=== PATIENT | male | born 1955 | race Caucasian/White ===

== ENCOUNTER → 2017-04-18 | Outpatient (CLI) | payer BC ==
[~2017-04-18] MED LIST: ALBU90OI6 INH; AMIT50; AMIT50 PO; AMOX500 PO; ASPI325; ASPI81CH PO; ATEN50 PO; AZIT250 PO; Amitriptyline100 MG PO; BENZ100A PO; CHOL10002 PO; CODGUAEL PO; Cyclobenzaprine5 MG PO; EZET10; FENO145 PO; GENT.3OPSA OD; HYDACE5; HYDACE5 PO; HYDPAM50 PO; IBUP600 PO; LEVFLO500; LEVSOD50 PO; LEVSOD75 PO; LORA2 PO; Lasix40 MG PO; MECL25 PO; METF500 PO; METR500; MYRBETRIQ50 MG PO; NAPR550 PO; NEBI10 PO; Norco 10-325 T1 EACH PO; OMEP20ER PO; OXYACE5T PO; PRED20 PO; PROM25 PO; RXCODGUASY PO; TOBR.3OPSO OP; VITAMIN D-32000 UNIT PO; Zofran Odt4 MG SL; [UNRECOGNIZED DRUG - REMARK]
[2017-04-18 10:39] LABS: Very Low Density Lipoprot Chol 58 mg/dL (6-32)
[2017-04-18 10:47] LABS: Alanine Aminotransfer (ALT/SGP 49 U/L (12-78); Albumin, Blood 3.3 g/dL (3.4-5.0); Albumin/Globulin Ratio 0.9 (0.8-1.8); Alk Phos 81 U/L (50-136); Anion Gap 8 mmol/L (6-16); Aspartate Aminotrans (AST/SGOT 32 U/L (12-37); Bilirubin, Total 0.3 mg/dL (0.1-1.0); Blood Urea Nitrogen 21 mg/dL (8-24); Bun/Creatinine Ratio 23.1 (12.0-20.0); CHOL/HDL RATIO 4.1; CO2, Blood 24 mmol/L (21-32); Calcium, Blood 8.6 mg/dL (8.5-10.1); Chloride, Blood 108 mmol/L (98-108); Cholesterol 146 mg/dL (50-200); Creatinine, Blood 0.91 mg/dL (0.60-1.20); Globulin, Blood 3.6 g/dL (2.2-4.0); Glomerular Filtration Rate >60 (60-); Glucose, Blood 135 mg/dL (70-99); HDL Cholesterol 36 mg/dL (>39); LDL/HDL RATIO 1.4; Low Density Lipoprotein Chol 52 mg/dL (0-110); Potassium, Blood 3.9 mmol/L (3.5-5.5); Sodium, Blood 140 mmol/L (136-145); Total Protein, Blood 6.9 g/dL (6.4-8.2); Triglycerides 292 mg/dL (30-160)
== END ==
LOC: LAB 09:37
PROVIDERS: Internal Medicine
DX: E78.2 Mixed hyperlipidemia (principal); E11.9 Type 2 diabetes mellitus without complications
CPT/HCPCS: 80053; 80061; 83036

== ENCOUNTER 2017-04-27 01:43 | Emergency (ER) | payer BC ==
[~2017-04-27] VITALS: Ht 167.6 cm; Wt 127.0 kg
[~2017-04-27 01:43] MED LIST changes: -ASPI81CH PO; -Amitriptyline100 MG PO; -Cyclobenzaprine5 MG PO; -LEVSOD75 PO; -Lasix40 MG PO; -NEBI10 PO; -Norco 10-325 T1 EACH PO; -VITAMIN D-32000 UNIT PO; -Zofran Odt4 MG SL
[2017-04-27] MEDS ORDERED: NEBI10 PO (02:49)
[2017-04-27 02:50] LABS: BASOPHILS ABSOLUTE AUTO 0.05 K/mm3 (0.00-0.23); BASOPHILS PERCENT AUTO 1 % (0-2); EOSINOPHILS ABSOLUTE AUTO 0.34 K/mm3 (0.00-0.68); EOSINOPHILS PERCENT AUTO 5 % (0-6); Hematocrit 44.2 % (37.0-53.0); Hemoglobin 14.8 g/dL (13.5-17.5); IMMATURE GRAN ABSOLUTE AUTO 0.02 K/mm3 (0.00-0.10); IMMATURE GRAN PERCENT AUTO 0 % (0-1); LYMPHOCYTES ABSOLUTE AUTO 1.88 K/mm3 (0.84-5.20); LYMPHOCYTES PERCENT AUTO 27 % (21-46); MONOCYTES ABSOLUTE AUTO 1.04 K/mm3 (0.16-1.47); MONOCYTES PERCENT AUTO 15 % (4-13); Mean Corpuscular HGB 30.6 pg (26.0-34.0); Mean Corpuscular HGB Conc 33.5 g/dL (31.5-36.5); Mean Corpuscular Volume 92 fL (80-100); Mean Platelet Volume 12.1 fL (9.1-12.4); NEUTROPHILS ABSOLUTE AUTO 3.56 K/mm3 (1.96-9.15); NEUTROPHILS PERCENT AUTO 52 % (41-73); Platelet Count 192 K/mm3 (150-400); RDW Standard Deviation 40.9 fL (35.1-46.3); Red Blood Cell Count 4.83 M/mm3 (4.30-5.90); White Blood Cell Count 6.89 K/mm3 (4.00-11.30)
[2017-04-27 03:08] LABS: Alanine Aminotransfer (ALT/SGP 50 U/L (12-78); Albumin, Blood 3.5 g/dL (3.4-5.0); Albumin/Globulin Ratio 0.9 (0.8-1.8); Alk Phos 85 U/L (50-136); Anion Gap 9 mmol/L (6-16); Aspartate Aminotrans (AST/SGOT 32 U/L (12-37); Bilirubin, Total 0.2 mg/dL (0.1-1.0); Blood Urea Nitrogen 15 mg/dL (8-24); Bun/Creatinine Ratio 16.1 (12.0-20.0); CO2, Blood 25 mmol/L (21-32); Calcium, Blood 8.8 mg/dL (8.5-10.1); Chloride, Blood 108 mmol/L (98-108); Creatinine, Blood 0.93 mg/dL (0.60-1.20); Globulin, Blood 4.1 g/dL (2.2-4.0); Glomerular Filtration Rate >60 (60-); Glucose, Blood 142 mg/dL (70-99); Potassium, Blood 4.1 mmol/L (3.5-5.5); Sodium, Blood 142 mmol/L (136-145); Total Protein, Blood 7.6 g/dL (6.4-8.2)
[2017-04-27] MEDS ORDERED: Cyclobenzaprine5 MG PO (05:38)
[2017-04-27] MEDS ORDERED: Zofran Odt4 MG SL (05:38)
[2017-04-27] MEDS ORDERED: Norco 10-325 T1 EACH PO (05:38)
== END 2017-04-27 06:03 | disposition home or self-care (01) ==
LOC: ER 01:43
PROVIDERS: Emergency Medicine
DX: R10.11 Right upper quadrant pain (principal); Z79.899 Other long term (current) drug therapy; Z79.84 Long term (current) use of oral hypoglycemic drugs; E03.9 Hypothyroidism, unspecified; I48.91 Unspecified atrial fibrillation; E78.00 Pure hypercholesterolemia, unspecified
CPT/HCPCS: 36415; 74176; 80053; 83690; 85025; 93005; 93010; 96361; 96374; 96375; 99284; J1170; J2405; J7030

== ENCOUNTER 2017-08-10 09:16 | Emergency (ER) | payer BC ==
[~2017-08-10] VITALS: Ht 175.3 cm; Wt 295.0 kg
[~2017-08-10 09:16] MED LIST changes: +Cyclobenzaprine5 MG PO; +NEBI10 PO; +Norco 10-325 T1 EACH PO; +Zofran Odt4 MG SL
[2017-08-10] MEDS ORDERED: Amitriptyline100 MG PO (10:08)
[2017-08-10] MEDS ORDERED: LEVSOD75 PO (10:09)
[2017-08-10] MEDS ORDERED: ASPI81CH PO (10:10)
[2017-08-10] MEDS ORDERED: VITAMIN D-32000 UNIT PO (10:10)
[2017-08-10 10:28] LABS: BASOPHILS ABSOLUTE AUTO 0.04 K/mm3 (0.00-0.23); BASOPHILS PERCENT AUTO 1 % (0-2); EOSINOPHILS ABSOLUTE AUTO 0.24 K/mm3 (0.00-0.68); EOSINOPHILS PERCENT AUTO 5 % (0-6); Hematocrit 43.1 % (37.0-53.0); IMMATURE GRAN ABSOLUTE AUTO 0.02 K/mm3 (0.00-0.10); IMMATURE GRAN PERCENT AUTO 0 % (0-1); LYMPHOCYTES ABSOLUTE AUTO 1.97 K/mm3 (0.84-5.20); LYMPHOCYTES PERCENT AUTO 39 % (21-46); MONOCYTES ABSOLUTE AUTO 0.66 K/mm3 (0.16-1.47); MONOCYTES PERCENT AUTO 13 % (4-13); Mean Corpuscular HGB 30.8 pg (26.0-34.0); Mean Corpuscular HGB Conc 32.5 g/dL (31.5-36.5); Mean Corpuscular Volume 95 fL (80-100); Mean Platelet Volume 12.1 fL (9.1-12.4); NEUTROPHILS PERCENT AUTO 42 % (41-73); Platelet Count 188 K/mm3 (150-400); RDW Coefficient Variation 12.8 % (11.7-14.2); RDW Standard Deviation 44.2 fL (35.1-46.3); Red Blood Cell Count 4.55 M/mm3 (4.30-5.90); White Blood Cell Count 5.03 K/mm3 (4.00-11.30)
[2017-08-10 10:42] LABS: Alanine Aminotransfer (ALT/SGP 55 U/L (12-78); Albumin, Blood 3.6 g/dL (3.4-5.0); Albumin/Globulin Ratio 0.9 (0.8-1.8); Alk Phos 71 U/L (50-136); Anion Gap 4 mmol/L (6-16); Aspartate Aminotrans (AST/SGOT 51 U/L (12-37); Bilirubin, Total 0.5 mg/dL (0.1-1.0); Blood Urea Nitrogen 17 mg/dL (8-24); Bun/Creatinine Ratio 17.5 (12.0-20.0); CO2, Blood 28 mmol/L (21-32); Calcium, Blood 8.7 mg/dL (8.5-10.1); Chloride, Blood 107 mmol/L (98-108); Creatinine, Blood 0.97 mg/dL (0.60-1.20); Globulin, Blood 4.2 g/dL (2.2-4.0); Glomerular Filtration Rate >60 (60-); Glucose, Blood 127 mg/dL (70-99); Potassium, Blood 4.1 mmol/L (3.5-5.5); Sodium, Blood 139 mmol/L (136-145); Total Protein, Blood 7.8 g/dL (6.4-8.2); Troponin I <0.015 ng/mL (0.000-0.040)
[2017-08-10] MEDS ORDERED: Lasix40 MG PO (11:40)
[2017-08-10 11:45] LABS: Free Thyroxine 1.03 ng/dL (0.70-1.60)
== END 2017-08-10 12:12 | disposition home or self-care (01) ==
LOC: ER 09:16
PROVIDERS: Emergency Medicine
DX: R60.0 Localized edema (principal); E03.9 Hypothyroidism, unspecified; I48.91 Unspecified atrial fibrillation; E78.00 Pure hypercholesterolemia, unspecified; Z79.899 Other long term (current) drug therapy; Z79.84 Long term (current) use of oral hypoglycemic drugs; Z79.82 Long term (current) use of aspirin; Z72.0 Tobacco use
CPT/HCPCS: 36415; 71046; 80053; 83880; 84439; 84443; 84484; 85025; 93005; 93010

== ENCOUNTER → 2018-05-01 | Outpatient (CLI) | payer SELFPAY ==
[~2018-05-01] MED LIST changes: +ASPI81CH PO; +Amitriptyline100 MG PO; +LEVSOD75 PO; +Lasix40 MG PO; +VITAMIN D-32000 UNIT PO
[2018-05-01 07:33] LABS: Alanine Aminotransfer (ALT/SGP 43 U/L (12-78); Albumin, Blood 3.5 g/dL (3.4-5.0); Albumin/Globulin Ratio 0.9 (0.8-1.8); Alk Phos 75 U/L (50-136); Anion Gap 6 mmol/L (6-16); Aspartate Aminotrans (AST/SGOT 19 U/L (12-37); Bilirubin, Total 0.2 mg/dL (0.1-1.0); Blood Urea Nitrogen 19 mg/dL (8-24); Bun/Creatinine Ratio 19.7 (12.0-20.0); CHOL/HDL RATIO 4.2; CO2, Blood 29 mmol/L (21-32); Calcium, Blood 8.5 mg/dL (8.5-10.1); Chloride, Blood 106 mmol/L (98-108); Cholesterol 156 mg/dL (50-200); Creatinine, Blood 0.96 mg/dL (0.60-1.20); Globulin, Blood 4.1 g/dL (2.2-4.0); Glomerular Filtration Rate >60 (60-); Glucose, Blood 123 mg/dL (70-99); HDL Cholesterol 37 mg/dL (>39); LDL/HDL RATIO 2.1; Low Density Lipoprotein Chol 77 mg/dL (0-110); Potassium, Blood 4.1 mmol/L (3.5-5.5); Sodium, Blood 141 mmol/L (136-145); Total Protein, Blood 7.6 g/dL (6.4-8.2); Triglycerides 208 mg/dL (30-160); Very Low Density Lipoprot Chol 41 mg/dL (6-32)
== END | disposition home or self-care (01) ==
LOC: LAB 06:45 → LAB SHORT 06:45
PROVIDERS: Family Medicine
DX: E78.1 Pure hyperglyceridemia (principal); E11.9 Type 2 diabetes mellitus without complications
CPT/HCPCS: 80053; 80061; 83036

== ENCOUNTER → 2019-04-09 | Outpatient (CLI) | payer BC ==
[2019-04-09 07:00] LABS: BASOPHILS ABSOLUTE AUTO 0.07 K/mm3 (0.00-0.23); BASOPHILS PERCENT AUTO 1 % (0-2); EOSINOPHILS ABSOLUTE AUTO 0.36 K/mm3 (0.00-0.68); EOSINOPHILS PERCENT AUTO 4 % (0-6); Hematocrit 43.1 % (37.0-53.0); Hemoglobin 13.9 g/dL (13.5-17.5); IMMATURE GRAN ABSOLUTE AUTO 0.02 K/mm3 (0.00-0.10); IMMATURE GRAN PERCENT AUTO 0 % (0-1); LYMPHOCYTES ABSOLUTE AUTO 3.49 K/mm3 (0.84-5.20); LYMPHOCYTES PERCENT AUTO 43 % (21-46); MONOCYTES ABSOLUTE AUTO 0.75 K/mm3 (0.16-1.47); MONOCYTES PERCENT AUTO 9 % (4-13); Mean Corpuscular HGB 30.5 pg (26.0-34.0); Mean Corpuscular HGB Conc 32.3 g/dL (31.5-36.5); Mean Corpuscular Volume 95 fL (80-100); NEUTROPHILS ABSOLUTE AUTO 3.47 K/mm3 (1.96-9.15); NEUTROPHILS PERCENT AUTO 43 % (41-73); Platelet Count 181 K/mm3 (150-400); RDW Coefficient Variation 12.4 % (11.7-14.2); RDW Standard Deviation 43.1 fL (35.1-46.3); Red Blood Cell Count 4.55 M/mm3 (4.30-5.90); White Blood Cell Count 8.16 K/mm3 (4.00-11.30)
[2019-04-09 07:17] LABS: Alanine Aminotransfer (ALT/SGP 47 U/L (12-78); Albumin, Blood 3.4 g/dL (3.4-5.0); Alk Phos 55 U/L (50-136); Anion Gap 7 mmol/L (6-16); Aspartate Aminotrans (AST/SGOT 23 U/L (12-37); Bilirubin, Total 0.3 mg/dL (0.1-1.0); Blood Urea Nitrogen 23 mg/dL (8-24); CHOL/HDL RATIO 3.6; CO2, Blood 25 mmol/L (21-32); Calcium, Blood 8.7 mg/dL (8.5-10.1); Chloride, Blood 109 mmol/L (98-108); Cholesterol 133 mg/dL (50-200); Creatinine, Blood 0.85 mg/dL (0.60-1.20); Free Thyroxine 1.02 ng/dL (0.70-1.60); Globulin, Blood 3.5 g/dL (2.2-4.0); Glomerular Filtration Rate >60 (60-); Glucose, Blood 95 mg/dL (70-99); HDL Cholesterol 37 mg/dL (>39); LDL/HDL RATIO 1.7; Low Density Lipoprotein Chol 64 mg/dL (0-110); Potassium, Blood 3.7 mmol/L (3.5-5.5); Sodium, Blood 141 mmol/L (136-145); Total Protein, Blood 6.9 g/dL (6.4-8.2); Triglycerides 159 mg/dL (30-160); Very Low Density Lipoprot Chol 31 mg/dL (6-32)
[2019-04-09 07:33] LABS: Mean Platelet Volume 13.1 fL (9.1-12.4)
== END | disposition home or self-care (01) ==
LOC: LAB 05:15 → LAB SHORT 05:15 → EDSTATUS 13:36
PROVIDERS: Family Medicine
DX: Z11.59 Encounter for screening for other viral diseases (principal); I48.0 Paroxysmal atrial fibrillation; E78.1 Pure hyperglyceridemia; E03.9 Hypothyroidism, unspecified; I10 Essential (primary) hypertension; E11.65 Type 2 diabetes mellitus with hyperglycemia
CPT/HCPCS: 80053; 80061; 83036; 83880; 84439; 84443; 85025; 86803

== ENCOUNTER 2020-01-21 13:49 | Emergency (ER) | payer BC ==
[~2020-01-21] VITALS: Ht 177.8 cm; Wt 127.0 kg
[2020-01-21] MEDS ORDERED: IBUP800 PO (15:21)
[2020-01-21] MEDS ORDERED: Norco 5-325 Ta1 EACH PO (15:21)
== END 2020-01-21 15:35 | disposition home or self-care (01) ==
LOC: ER 13:49
DX: S20.213A Contusion of bilateral front wall of thorax, initial encounter (principal); R10.12 Left upper quadrant pain; E03.9 Hypothyroidism, unspecified; E11.9 Type 2 diabetes mellitus without complications; I48.91 Unspecified atrial fibrillation; E78.00 Pure hypercholesterolemia, unspecified; F17.220 Nicotine dependence, chewing tobacco, uncomplicated; Z79.82 Long term (current) use of aspirin; Z79.84 Long term (current) use of oral hypoglycemic drugs; Z79.899 Other long term (current) drug therapy; V86.59XA Driver of other special all-terrain or other off-road motor vehicle injured in nontraffic accident, initial encounter
CPT/HCPCS: 71110; 99283-25

== ENCOUNTER → 2020-12-07 | Outpatient (CLI) | payer SELFPAY ==
[~2020-12-07] MED LIST changes: +IBUP800 PO; +Norco 5-325 Ta1 EACH PO
[2020-12-07 08:27] LABS: Microalb/Creat Ratio UR, Rand 7.74 mg/g (0.000-30.000); Microalbumin, Random Urine 11.3 mg/L (0.000-20.000)
== END | disposition home or self-care (01) ==
LOC: LAB SHORT 05:50 → LAB 05:50
PROVIDERS: Family Medicine
DX: E11.9 Type 2 diabetes mellitus without complications (principal)
CPT/HCPCS: 82043; 82570; 83036

== ENCOUNTER → 2021-08-24 | Outpatient (CLI) | payer SELFPAY ==
[2021-08-24 07:39] LABS: BASOPHILS ABSOLUTE AUTO 0.05 K/mm3 (0.00-0.23); BASOPHILS PERCENT AUTO 1 % (0-2); EOSINOPHILS ABSOLUTE AUTO 0.26 K/mm3 (0.00-0.68); EOSINOPHILS PERCENT AUTO 4 % (0-6); Hematocrit 43.7 % (37.0-53.0); Hemoglobin 14.3 g/dL (13.5-17.5); IMMATURE GRAN ABSOLUTE AUTO 0.03 K/mm3 (0.00-0.10); IMMATURE GRAN PERCENT AUTO 0 % (0-1); LYMPHOCYTES ABSOLUTE AUTO 3.08 K/mm3 (0.84-5.20); LYMPHOCYTES PERCENT AUTO 43 % (21-46); MONOCYTES ABSOLUTE AUTO 0.69 K/mm3 (0.16-1.47); MONOCYTES PERCENT AUTO 10 % (4-13); Mean Corpuscular HGB 30.9 pg (26.0-34.0); Mean Corpuscular HGB Conc 32.7 g/dL (31.5-36.5); Mean Corpuscular Volume 94 fL (80-100); Mean Platelet Volume 12.9 fL (9.1-12.4); NEUTROPHILS ABSOLUTE AUTO 3.05 K/mm3 (1.96-9.15); NEUTROPHILS PERCENT AUTO 43 % (41-73); Platelet Count 181 K/mm3 (150-400); RDW Coefficient Variation 12.4 % (11.7-14.2); Red Blood Cell Count 4.63 M/mm3 (4.30-5.90); White Blood Cell Count 7.16 K/mm3 (4.00-11.30)
[2021-08-24 07:54] LABS: Alanine Aminotransfer (ALT/SGP 35 U/L (12-78); Albumin, Blood 3.2 g/dL (3.4-5.0); Albumin/Globulin Ratio 0.8 (0.8-1.8); Alk Phos 71 U/L (50-136); Anion Gap 6 mmol/L (6-16); Aspartate Aminotrans (AST/SGOT 22 U/L (12-37); Bilirubin, Total 0.3 mg/dL (0.1-1.0); Blood Urea Nitrogen 18 mg/dL (8-24); Bun/Creatinine Ratio 25.8 (12.0-20.0); CHOL/HDL RATIO 3.8; CO2, Blood 28 mmol/L (21-32); Calcium, Blood 8.8 mg/dL (8.5-10.1); Chloride, Blood 108 mmol/L (98-108); Cholesterol 137 mg/dL (50-200); Globulin, Blood 3.8 g/dL (2.2-4.0); Glomerular Filtration Rate 102 (60-); Glucose, Blood 135 mg/dL (70-99); HDL Cholesterol 36 mg/dL (>39); Low Density Lipoprotein Chol 71 mg/dL (0-110); Sodium, Blood 142 mmol/L (136-145); Triglycerides 149 mg/dL (30-160); Very Low Density Lipoprot Chol 29 mg/dL (6-32)
[2021-08-25 17:09] LABS: Magnesium, Blood 1.9 mg/dL (1.6-2.4)
[2021-08-25 17:10] LABS: Thyroid Stimulating Hormone 4.49 uIU/mL (0.360-4.800)
== END ==
LOC: LAB SHORT 05:30
PROVIDERS: Family Medicine
DX: E11.42 Type 2 diabetes mellitus with diabetic polyneuropathy (principal); E11.59 Type 2 diabetes mellitus with other circulatory complications; E78.1 Pure hyperglyceridemia; I10 Essential (primary) hypertension; R53.83 Other fatigue; R60.9 Edema, unspecified
CPT/HCPCS: 80053; 80061; 83036; 83735; 84443; 85025

== ENCOUNTER → 2023-01-16 | Outpatient (CLI) | payer OTHER ==
[2023-01-16 06:19] LABS: BASOPHILS ABSOLUTE AUTO 0.03 K/mm3 (0.00-0.23); BASOPHILS PERCENT AUTO 1 % (0-2); EOSINOPHILS ABSOLUTE AUTO 0.26 K/mm3 (0.00-0.68); EOSINOPHILS PERCENT AUTO 5 % (0-6); Hematocrit 40.3 % (37.0-53.0); Hemoglobin 13.3 g/dL (13.5-17.5); IMMATURE GRAN ABSOLUTE AUTO 0.01 K/mm3 (0.00-0.10); IMMATURE GRAN PERCENT AUTO 0 % (0-1); LYMPHOCYTES ABSOLUTE AUTO 2.71 K/mm3 (0.84-5.20); LYMPHOCYTES PERCENT AUTO 47 % (21-46); MONOCYTES ABSOLUTE AUTO 0.66 K/mm3 (0.16-1.47); MONOCYTES PERCENT AUTO 11 % (4-13); Mean Corpuscular HGB 30.7 pg (26.0-34.0); Mean Corpuscular Volume 93 fL (80-100); Mean Platelet Volume 12.6 fL (9.1-12.4); NEUTROPHILS ABSOLUTE AUTO 2.12 K/mm3 (1.96-9.15); NEUTROPHILS PERCENT AUTO 37 % (41-73); Platelet Count 177 K/mm3 (150-400); RDW Coefficient Variation 12.9 % (11.7-14.2); RDW Standard Deviation 44.7 fL (35.1-46.3); Red Blood Cell Count 4.33 M/mm3 (4.30-5.90); White Blood Cell Count 5.79 K/mm3 (4.00-11.30)
[2023-01-16 06:49] LABS: CHOL/HDL RATIO 3.5; Cholesterol 135 mg/dL (50-200); HDL Cholesterol 39 mg/dL (>39); LDL/HDL RATIO 1.6; Low Density Lipoprotein Chol 62 mg/dL (0-110); Magnesium, Blood 1.7 mg/dL (1.6-2.4); Triglycerides 169 mg/dL (30-160); Very Low Density Lipoprot Chol 33 mg/dL (6-32)
[2023-01-16 16:37] LABS: Albumin, Blood 3.1 g/dL (3.4-5.0); Albumin/Globulin Ratio 0.9 (0.8-1.8); Bilirubin, Total 0.2 mg/dL (0.1-1.0); Bun/Creatinine Ratio 16.4 (12.0-20.0); Calcium, Blood 8.2 mg/dL (8.5-10.1); Creatinine, Blood 0.92 mg/dL (0.60-1.20); Globulin, Blood 3.3 g/dL (2.2-4.0); Potassium, Blood 4.1 mmol/L (3.5-5.5); Total Protein, Blood 6.4 g/dL (6.4-8.2)
== END | disposition home or self-care (01) ==
LOC: LAB SHORT 06:02 → LAB 06:02
PROVIDERS: Family Medicine
DX: E03.9 Hypothyroidism, unspecified (principal); E11.42 Type 2 diabetes mellitus with diabetic polyneuropathy; E11.59 Type 2 diabetes mellitus with other circulatory complications; E78.1 Pure hyperglyceridemia; I10 Essential (primary) hypertension; R25.2 Cramp and spasm
CPT/HCPCS: 80053; 80061; 83036; 83735; 83880; 84443; 85025

== ENCOUNTER → 2023-03-01 | Outpatient (CLI) | payer OTHER ==
[2023-03-03 11:36] LABS: TISSUE TRANSGLUTAMINAS TTG,IGA <1.02 FLU (0.00-4.99)
== END | disposition home or self-care (01) ==
LOC: LAB SHORT 08:57 → LAB 08:57
PROVIDERS: Family Medicine
DX: E11.42 Type 2 diabetes mellitus with diabetic polyneuropathy (principal); E11.59 Type 2 diabetes mellitus with other circulatory complications; K52.9 Noninfective gastroenteritis and colitis, unspecified
CPT/HCPCS: 36415; 83036

== ENCOUNTER 2023-12-28 06:54 | Observation (INO) | payer OTHER ==
[2023-12-28] VITALS (12 sets, daily range): BP systolic 127–155; BP diastolic 74–89
[~2023-12-28] VITALS: Ht 175.3 cm; Wt 124.0 kg
[2023-12-28] MEDS ORDERED: EUTHYROX88 MCG PO (07:12)
[2023-12-28] MEDS ORDERED: INSULIN SHORT ACTING (07:13)
[2023-12-28] MEDS ORDERED: INSULIN LONG ACTING (07:13)
[2023-12-28 07:32] LABS: BASOPHILS ABSOLUTE AUTO 0.04 K/mm3 (0.00-0.23); BASOPHILS PERCENT AUTO 1 % (0-2); EOSINOPHILS ABSOLUTE AUTO 0.24 K/mm3 (0.00-0.68); EOSINOPHILS PERCENT AUTO 3 % (0-6); Hematocrit 42.4 % (37.0-53.0); Hemoglobin 14.2 g/dL (13.5-17.5); IMMATURE GRAN ABSOLUTE AUTO 0.01 K/mm3 (0.00-0.10); IMMATURE GRAN PERCENT AUTO 0 % (0-1); LYMPHOCYTES ABSOLUTE AUTO 2.41 K/mm3 (0.84-5.20); LYMPHOCYTES PERCENT AUTO 34 % (21-46); MONOCYTES PERCENT AUTO 11 % (4-13); Mean Corpuscular HGB 31.2 pg (26.0-34.0); Mean Corpuscular HGB Conc 33.5 g/dL (31.5-36.5); Mean Corpuscular Volume 93 fL (80-100); Mean Platelet Volume 12.2 fL (9.1-12.4); NEUTROPHILS ABSOLUTE AUTO 3.69 K/mm3 (1.96-9.15); NEUTROPHILS PERCENT AUTO 51 % (41-73); Platelet Count 173 K/mm3 (150-400); RDW Coefficient Variation 12.4 % (11.7-14.2); RDW Standard Deviation 42.8 fL (35.1-46.3); Red Blood Cell Count 4.55 M/mm3 (4.30-5.90); White Blood Cell Count 7.19 K/mm3 (4.00-11.30)
[2023-12-28 07:51] LABS: Albumin, Blood 3.4 g/dL (3.4-5.0); Albumin/Globulin Ratio 0.8 (0.8-1.8); Bilirubin, Total 0.5 mg/dL (0.1-1.0); Bun/Creatinine Ratio 15.5 (12.0-20.0); Calcium, Blood 9.2 mg/dL (8.5-10.1); Creatinine, Blood 0.65 mg/dL (0.60-1.20); Globulin, Blood 4.1 g/dL (2.2-4.0); Potassium, Blood 4.4 mmol/L (3.5-5.5); Total Protein, Blood 7.5 g/dL (6.4-8.2)
[2023-12-28] MEDS ORDERED: FLU VACC TS2024-25(6MOS UP)/PF 45 MCG/0.5 ML SYRINGE IM SCH (11:35)
[2023-12-28] MEDS ORDERED: Ondansetron 4 MG TAB PO PRN (11:35)
[2023-12-28] MEDS ORDERED: Lactated Ringer's 1,000 ML IV SCH ×2 (12:00→12:40)
--- NOTE | 2023-12-28 12:58 | NUR ---
PT HERE FROM ER FOR INCARCERATED HERNIA REPAIR Pre-Op teaching done. Pt verbalizes understanding. History, Chart, Medications and Allergies reviewed before start of procedure. LAST ATE SOLID FOOD 12/27/23 @ 1999 LATE DRANK COFFEE W/SUGAR 12/28/23 @0600
[2023-12-28] MEDS ORDERED: Insulin Regular 100 UNIT/ML 10ML Vial SC ONE (13:10)
[2023-12-28] MEDS ORDERED: FentaNYL Citrate 50 MCG/ML 2 ML Injection ONE (13:16)
[2023-12-28] MEDS ORDERED: Albumin (Human) 12.5gm/250ml 500 ML IV ONE (13:18)
[2023-12-28] MEDS ORDERED: Etomidate 2MG / ML 10ML Vial ONE (13:18)
[2023-12-28] MEDS ORDERED: Rocuronium Bromide 10 MG/ML 5ML Injection IV ONE (13:27)
[2023-12-28] MEDS ORDERED: Ondansetron HCl 2 MG / ML 2ML Vial ONE (13:27)
[2023-12-28] MEDS ORDERED: CeFAZolin Sodium 1000 mg Vial ONE (13:27)
[2023-12-28] MEDS ORDERED: Dexamethasone Sod Phos 10 MG/ML 1ML VIAL ONE (13:27)
[2023-12-28] MEDS ORDERED: Bupivacaine 0.5% HCl 5 MG/ML 30MLVIAL ONE (13:32)
[2023-12-28] MEDS ORDERED: Ketorolac Tromethamine 30mg Vial ONE (14:03)
[2023-12-28] MEDS ORDERED: Sugammadex Sodium 200 MG/2ML SDV (100 MG/ML) ONE (14:03)
[2023-12-28] MEDS ORDERED: propofoL 20 ML IV ONE (14:36)
--- NOTE | 2023-12-28 16:27 | NUR ---
PT ARRIVED TO THE ROOM FROM PACU AT APPROXIMATELY 1555. PT ALERT/ORIENTED. PT REPORTED INCREASED ABD PAIN WITH MOVEMENT. PT REPORTS SLIGHT NAUSEA. HIS IS AT THE BEDSIDE FOR SUPPORT. DR. OSBORN CONTACTED FOR DIET AND PAIN MANAGEMENT ORDERS.
[2023-12-28] MEDS ORDERED: FentaNYL Citrate 50 MCG/ML 2 ML Injection IV PRN (16:30)
[2023-12-28] MEDS ORDERED: Insulin Regular 100 UNIT/ML 10ML Vial SC SCH (16:30)
[2023-12-28] MEDS ORDERED: HYDROcodone 5-APAP 325 TAB PO PRN (16:30)
[2023-12-28] MEDS ORDERED: Carvedilol 6.25 MG Tab PO SCH (17:00)
[2023-12-28] MEDS ORDERED: FURO20 PO (19:01)
[2023-12-28] MEDS ORDERED: POTCHL20ER PO (19:03)
[2023-12-28] MEDS ORDERED: INSULIN GL100 UNIT/2 SC (19:04)
[2023-12-28] MEDS ORDERED: NOVOLOG FL100 UNIT/3 (19:04)
[2023-12-28] MEDS ORDERED: INSULIN GL100 UNIT/1 SC (19:05)
--- NOTE | 2023-12-28 19:57 | NUR ---
CALLED CX TO KAYLA REGARDING NEED FOR DIABETIC MANAGEMENT-SLIDING SCALE.
--- NOTE | 2023-12-28 20:10 | NUR ---
SHIFT SUMMARY PT IS POD#0 FROM VENTRAL HERNIA REPAIR WITH DR. OSBORN. PAIN MANAGED WITH PO PAIN MEDICATION. PT TOLERATING PO, VOIDING AND ABLE TO PASS FLATUS. BLOOD GLUCOSE ELEVATED THIS EVENING, [address] OSBORN NOTIFIED OF ELEVATED CBG, HE ORDERE A HOSPITALIST CONSULT. CONSULT CALLED AT 1907, MESSAGE LEFT. PT COVERED WITH ORDERED INSULIN. BRIAN RN NOTIFIED OF CONSULT. DR. OSBORN PLACED AN ORDER FOR PT'S HOME LONG ACTING INSULIN. VSS. BEDSIDE REPORT GIVEN TO BRIAN TERRAZAS.
[2023-12-28] MEDS ORDERED: Insulin Glargine-Yfgn 100 Unit/mL 3 ML SYR SC SCH ×2 (21:00)
[2023-12-28] MEDS ORDERED: Amitriptyline HCl 50 MG Tab PO SCH (21:00)
[2023-12-29 00:05] VITALS: BP 131/81
[2023-12-29 04:08] LABS: BASOPHILS ABSOLUTE AUTO 0.02 K/mm3 (0.00-0.23); BASOPHILS PERCENT AUTO 0 % (0-2); EOSINOPHILS ABSOLUTE AUTO 0.01 K/mm3 (0.00-0.68); EOSINOPHILS PERCENT AUTO 0 % (0-6); Hematocrit 39.1 % (37.0-53.0); Hemoglobin 13.1 g/dL (13.5-17.5); IMMATURE GRAN ABSOLUTE AUTO 0.06 K/mm3 (0.00-0.10); IMMATURE GRAN PERCENT AUTO 0 % (0-1); LYMPHOCYTES ABSOLUTE AUTO 1.38 K/mm3 (0.84-5.20); LYMPHOCYTES PERCENT AUTO 10 % (21-46); MONOCYTES ABSOLUTE AUTO 1.14 K/mm3 (0.16-1.47); MONOCYTES PERCENT AUTO 8 % (4-13); Mean Corpuscular HGB Conc 33.5 g/dL (31.5-36.5); Mean Corpuscular Volume 92 fL (80-100); Mean Platelet Volume 12.8 fL (9.1-12.4); NEUTROPHILS ABSOLUTE AUTO 10.96 K/mm3 (1.96-9.15); NEUTROPHILS PERCENT AUTO 81 % (41-73); Platelet Count 172 K/mm3 (150-400); RDW Standard Deviation 40.5 fL (35.1-46.3); Red Blood Cell Count 4.23 M/mm3 (4.30-5.90); White Blood Cell Count 13.57 K/mm3 (4.00-11.30)
[2023-12-29 04:09] VITALS: BP 105/42
--- NOTE | 2023-12-29 05:32 | NUR ---
SHIFT SUMMARY POD 1 INCARCERATED HERNIA REAPIR PT ABLE TO REST DURING THE SHIFT. PAIN MANAGED PER EMAR. TOLERATING PO INTAKE, VOIDING. PT REPORTS PASSING GAS. ABD BINDER ON DURING THE NIGHT. SMALL MIDLINE INSICION DRESSED WITH GAUZE AND TEG ARE C/D/I. VSS. PT 1P SAB W/ FWW AND GB. NO OTHER CONCERNS AT THIS TIME, CALL LIGHT WITHIN REACH
[2023-12-29] MEDS ORDERED: Levothyroxine Sodium 0.088 MG Tab PO SCH (06:00)
[2023-12-29] MEDS ORDERED: Omeprazole 20 MG CapCR PO SCH (06:00)
[2023-12-29 06:44] LABS: Albumin, Blood 3.1 g/dL (3.4-5.0); Albumin/Globulin Ratio 0.9 (0.8-1.8); Bilirubin, Total 0.4 mg/dL (0.1-1.0); Bun/Creatinine Ratio 18.1 (12.0-20.0); Calcium, Blood 8.7 mg/dL (8.5-10.1); Creatinine, Blood 0.66 mg/dL (0.60-1.20); Globulin, Blood 3.6 g/dL (2.2-4.0); Potassium, Blood 4.5 mmol/L (3.5-5.5); Total Protein, Blood 6.7 g/dL (6.4-8.2)
[2023-12-29 07:19] VITALS: BP 131/77
[2023-12-29] MEDS ORDERED: Insulin Glargine-Yfgn 100 Unit/mL 3 ML SYR SC SCH (09:00)
[2023-12-29] MEDS ORDERED: Enoxaparin 40 MG/0.4 ML SYR SC SCH (09:00)
[2023-12-29] MEDS ORDERED: HYDR1TAB94 PO (09:18)
--- NOTE | 2023-12-29 09:26 | NUR ---
DISCHARGE PT EDUCATED ON AND RECEIVED PRINTED DISCHARGE INSTRUCTIONS AND VERB AN UNDERSTANDING. HARD RX FOR NORCO GIVEN TO PT. IV DC'D. PT GATHERED ALL PERSONAL BELONGINGS. PT WAITING FOR RIDE HOME
--- NOTE | 2023-12-29 09:30 | NUR ---
Pt. is sitting up and awaiting discharge when he welcome smy visit. facilitate alife review and considered matters of pamela and belief. Pt. took my hand as I prayed for him and verbalized gratitude for the spiritual care visit.
== END 2023-12-29 09:55 | disposition home or self-care (01) ==
LOC: ER 06:54 → SURS 06:55 → ER 12:45 → SURS 15:47
PROVIDERS: Emergency Medicine; ADMIT Surgery
PROC: 0WUF0JZ Supplement Abdominal Wall with Synthetic Substitute, Open Approach (ICD-10-PCS; principal; 2023-12-28 13:30)
DX: K43.0 Incisional hernia with obstruction, without gangrene (principal); E11.65 Type 2 diabetes mellitus with hyperglycemia; E03.9 Hypothyroidism, unspecified; E78.00 Pure hypercholesterolemia, unspecified; I48.91 Unspecified atrial fibrillation; Z79.4 Long term (current) use of insulin; Z79.899 Other long term (current) drug therapy
CPT/HCPCS: 36415; 74177; 80053; 82947; 85025; 88302; 93005; 93010; 94762; 99285-25; A9270; C1781; G0378; J0690; J1100; J1815; J1885; J2405; J2704; J3010; J7120; P9045; Q9967